=== PATIENT | female | born 1980 | race Asian ===

== ENCOUNTER 2024-01-05 08:51 | Inpatient (IN) ==
[2024-01-05] MEDS ORDERED: Nalbuphine 10 MG/ML 1 ML VIAL IV PRN (09:55)
[2024-01-05] MEDS ORDERED: Prochlorperazine 5 mg/ml 2 ml VIAL (10 mg) IV PRN (09:55)
[2024-01-05] MEDS ORDERED: Lidocaine 1% VIAL 10 MG/ML 30 ML VIAL INJ PRN (09:55)
[2024-01-05] MEDS: miSOPROStol 100 mcg TAB VAGINAL ONE (10:29)
[2024-01-05 10:37] LABS: Urine Benzodiazepine Screen None Detected (None Detect); Urine Cannabinoids Screen None Detected (None Detect); Urine Opiates Screen None Detected (None Detect)
[2024-01-05 16:23] LABS: ABS Basophils 0.1 10^3/uL (0.0-0.1); ABS Eosinophils 0.1 10^3/uL (0.0-0.5); ABS Lymphocytes 1.9 10^3/uL (1.0-4.8); ABS Monocytes 0.6 10^3/uL (0.0-0.9); ABS Neutrophils 5.1 10^3/uL (1.5-7.6); ABS Nucleated RBC 0.01 10^3/ul; Eosinophil % 1.2 %; Hematocrit 45.4 % (35-45); Lymphocyte % 24.5 %; Mean Corpuscular Hemoglobin 32.8 pg (27-33); Mean Corpuscular Hgb Conc 35.3 g/dL (31-36); Mean Corpuscular Volume 92.7 fL (80-97); Mean Platelet Volume 8.5 fL (7.5-11.2); Nucleated Red Blood Cells % 0.2 %/100WBC (0.0-0.8); Platelet Count 212 10^3/uL (150-450); Red Blood Count 4.89 10^6/uL (3.63-4.92); Red Cell Distribution Width 14.1 % (12-17); White Blood Count 7.8 10^3/uL (3.8-11.8)
[2024-01-05] MEDS: Lactated Ringers 1000 ml BAG 1,000 ML IV ONE (16:48)
[2024-01-05] MEDS ORDERED: Glycerin ADULT 2.4 gm SUPP PR PRN (18:23)
[2024-01-05] MEDS: Oxytocin in LR 20,000 MILLI.UNIT/1,000 ML BAG IV SCH (18:25)
[2024-01-05] MEDS ORDERED: Lactated Ringers 1000 ml BAG 1,000 ML IV SCH (19:00)
[2024-01-05] MEDS: Dibucaine 1% OINT 28.35 GM TUBE PR PRN (19:30)
[2024-01-05] MEDS: Witch Hazel PAD JAR TOPICAL PRN (19:30)
[2024-01-05] MEDS: Buffered Lidocaine 1% SYRIN 1 ml INTRADERM ONE (21:07)
[2024-01-05] MEDS: Oxytocin in LR 20,000 MILLI.UNIT/1,000 ML BAG IV ONE (21:08)
[2024-01-05] MEDS: Lactated Ringers 1000 ml BAG 1,000 ML IV SCH (21:08)
[2024-01-06 06:23] LABS: ABS Eosinophils 0.1 10^3/uL (0.0-0.5); ABS Lymphocytes 1.8 10^3/uL (1.0-4.8); ABS Neutrophils 11.6 10^3/uL (1.5-7.6); ABS Nucleated RBC 0.01 10^3/ul; Eosinophil % 0.6 %; Hematocrit 36.7 % (35-45); Hemoglobin 12.5 g/dL (11.5-14.3); Lymphocyte % 12.6 %; Mean Corpuscular Hemoglobin 31.7 pg (27-33); Mean Corpuscular Hgb Conc 33.9 g/dL (31-36); Mean Corpuscular Volume 93.3 fL (80-97); Mean Platelet Volume 8.3 fL (7.5-11.2); Nucleated Red Blood Cells % 0.1 %/100WBC (0.0-0.8); Platelet Count 188 10^3/uL (150-450); Red Blood Count 3.93 10^6/uL (3.63-4.92); Red Cell Distribution Width 14.1 % (12-17); White Blood Count 14.6 10^3/uL (3.8-11.8)
[2024-01-06 12:09] VITALS: BP 133/54
== END 2024-01-06 21:26 | disposition home or self-care (01) | DRG 560 ==
LOC: MCHOBOUT 08:51 → MCHOB 09:45
PROVIDERS: ADMIT Obstetrics & Gynecology; ATTEND Obstetrics & Gynecology